=== PATIENT | female | born 1970 | race Caucasian/White ===

== ENCOUNTER 2017-11-19 15:46 | Outpatient (CLI) | payer BC | END 2017-11-19 15:47 | disposition home or self-care (01) | LOC: BICMAMMO 15:46 | PROVIDERS: ATTEND Obstetrics & Gynecology | DX: Z12.31 Encounter for screening mammogram for malignant neoplasm of breast (principal) | CPT/HCPCS: 77063; 77067 ==

== ENCOUNTER 2018-11-29 07:32 | Outpatient (CLI) | payer BC ==
--- NOTE | 2018-11-29 09:03 | ULT ---
LEFT BREAST ULTRASOUND: HISTORY: Left subareolar mass noted on screening mammography. COMPARISON: None. TECHNIQUE: Targeted sonographic imaging of the left retroareolar region was performed. Static images were revie wed. After reviewing the static images, real-time imaging was also performed in the presence of the radiologist. FINDINGS: Static and real-time imaging demonstrate a well-circumscribed anechoic focus measuring 1.4 x 1.1 x 1. 2 cm, compatible with a cyst. IMPRESSION: BIRADS category 2, benign findings. RECOMMENDATION: Annual mammogram. POS: NIC
== END 2018-11-29 07:33 | disposition home or self-care (01) ==
LOC: BICULT 07:32
PROVIDERS: ATTEND Obstetrics & Gynecology
DX: N63.20 Unspecified lump in the left breast, unspecified quadrant (principal)

== ENCOUNTER 2019-12-11 11:57 | Outpatient (CLI) | payer BC ==
--- NOTE | 2019-12-11 14:59 | MMO ---
Bilateral MAMMO Bilat Screen [facility]. CLINICAL HISTORY: Patient is 48 years old and is seen for screening. The patient has no family history of breast cancer. The patient has no personal history of cancer. VIEWS: The views performed were: bilateral craniocaudal with tomosynthesis and bilateral mediolateral oblique with tomosynthesis. FILMS COMPARED: The present examination has been compared to prior imaging studies performed at [facility] on 11/22/2018, and at [facility] on 09/21/2016, 11/19/2017 and 11/29/2018. This study has been interpreted with the assistance of computer-aided detection. MAMMOGRAM FINDINGS: The breasts are heterogeneously dense, which could obscure a lesion on mammography. There are no suspicious masses, suspicious calcifications, or new areas of architectural distortion. IMPRESSION: THERE IS NO MAMMOGRAPHIC EVIDENCE OF MALIGNANCY. A ROUTINE FOLLOW-UP MAMMOGRAM IN 1 YEAR IS RECOMMENDED. THE RESULTS OF THIS EXAM WERE SENT TO THE PATIENT. ACR BI-RADS Category 1 - Negative MAMMOGRAPHY NOTE: 1. A negative mammogram report should not delay a biopsy if a dominant of clinically suspicious mass is present. 2. Approximately 10% to 15% of breast cancers are not detected by mammography. 3. Adenosis and dense breasts may obscure an underlying neoplasm. Reported by: RICHARD MARTINEZ MD Electonically Signed: [id number]
== END 2019-12-11 11:58 | disposition home or self-care (01) ==
LOC: BICMAMMO 11:57
PROVIDERS: ATTEND Obstetrics & Gynecology
DX: Z12.31 Encounter for screening mammogram for malignant neoplasm of breast (principal)
CPT/HCPCS: 77063; 77067

== ENCOUNTER 2021-01-13 10:58 | Outpatient (CLI) | payer BC ==
[2021-01-13 12:04] LABS: Hemoglobin 12.5 g/dL (12.0-15.5); Mean Corpuscular HGB CONC 33.6 g/dL (32.0-36.0); Mean Corpuscular Hemoglobin 31.7 pg (27.0-33.0); Mean Corpuscular Volume 94.4 fl (81.6-98.3); Mean Platelet Volume 11.3 fl (7.4-10.4); Platelet Count 364 10x3/uL (150-450); RBC Distribution Width 13.3 % (11.5-14.5); Red Blood Cell (RBC) Count 3.94 10x6/uL (3.90-5.03); White Blood Cell (WBC) Count 6.7 10x3/uL (3.5-10.5)
[2021-01-13 12:35] LABS: PTT 27.2 sec (22.0-33.0); Prothrombin Time 10.8 sec (9.5-12.1)
[2021-01-13 12:39] LABS: Anion Gap 17 mmol/L (10-20); BUN (Urea Nitrogen) 11 mg/dL (7.0-18.7); Calc. Creatinine Clearance 0 mL/min (70-130); Calcium 10.3 mg/dL (7.8-10.44); Carbon Dioxide 21 mmol/L (22-29); Chloride 107 mmol/L (98-107); Glucose 77 mg/dL (70-105); Potassium 4.8 mmol/L (3.5-5.1); Sodium 140 mmol/L (136-145)
[2021-01-14 01:05] LABS: SARS-CoV-2 PCR by NAA Not Detected (NotDetected)
== END 2021-01-13 10:59 | disposition home or self-care (01) ==
LOC: LABBT 10:58
PROVIDERS: ATTEND Surgery
DX: Z01.818 Encounter for other preprocedural examination (principal); M50.122 Cervical disc disorder at C5-C6 level with radiculopathy; M48.02 Spinal stenosis, cervical region; Z20.822 Contact with and (suspected) exposure to COVID-19
CPT/HCPCS: 80048; 85027; 85610; 85730; 86850; 86900; 86901; 93005; 93010; U0003; U0005

== ENCOUNTER 2021-01-18 06:08 | Observation (INO) | payer BC ==
[2021-01-13 12:04] LABS: Hemoglobin 12.5 g/dL (12.0-15.5); Mean Corpuscular HGB CONC 33.6 g/dL (32.0-36.0); Mean Corpuscular Hemoglobin 31.7 pg (27.0-33.0); Mean Corpuscular Volume 94.4 fl (81.6-98.3); Mean Platelet Volume 11.3 fl (7.4-10.4); Platelet Count 364 10x3/uL (150-450); RBC Distribution Width 13.3 % (11.5-14.5); Red Blood Cell (RBC) Count 3.94 10x6/uL (3.90-5.03); White Blood Cell (WBC) Count 6.7 10x3/uL (3.5-10.5)
[2021-01-13 12:35] LABS: PTT 27.2 sec (22.0-33.0); Prothrombin Time 10.8 sec (9.5-12.1)
[2021-01-13 12:39] LABS: Anion Gap 17 mmol/L (10-20); BUN (Urea Nitrogen) 11 mg/dL (7.0-18.7); Calc. Creatinine Clearance 0 mL/min (70-130); Calcium 10.3 mg/dL (7.8-10.44); Carbon Dioxide 21 mmol/L (22-29); Chloride 107 mmol/L (98-107); Glucose 77 mg/dL (70-105); Potassium 4.8 mmol/L (3.5-5.1); Sodium 140 mmol/L (136-145)
[2021-01-14 01:05] LABS: SARS-CoV-2 PCR by NAA Not Detected (NotDetected)
[2021-01-18] MEDS ORDERED: ceFAZolin 2 GM/DEX 5% 100 ML BAG ONE (06:22)
[2021-01-18] MEDS ORDERED: Thrombin 5000 UNITS/5 ML VIAL ONE (06:47)
[2021-01-18] MEDS ORDERED: Midazolam HCl 2 mg/2 ml Vial ONE (06:59)
[2021-01-18] MEDS ORDERED: Fentanyl 100 MCG/2 ML VIAL ONE (07:04)
[2021-01-18] MEDS ORDERED: Ketorolac Tromethamine 30 MG/ML VIAL ONE (07:32)
[2021-01-18] MEDS ORDERED: Glycopyrrolate 0.2 MG/ML 5 ML SYRINGE ONE (07:32)
[2021-01-18] MEDS ORDERED: ePHEDrine 50 MG/ML VIAL ONE (07:32)
[2021-01-18] MEDS ORDERED: Lidocaine 1% PF 5 ML VIAL ONE (07:32)
[2021-01-18] MEDS ORDERED: Dexamethasone 20 MG/5 ML VIAL ONE (07:32)
[2021-01-18] MEDS ORDERED: PROPOFOL 200 MG/20 ML VIAL ONE (07:32)
[2021-01-18] MEDS ORDERED: PHENYLEPHRINE-NS 100 MCG/ML 10 ML SYRINGE ONE (07:32)
[2021-01-18] MEDS ORDERED: Ondansetron PF 4 MG/2 ML Vial ONE (07:32)
[2021-01-18] MEDS ORDERED: Rocuronium Bromide 10 MG/ML (10ML VIAL) ONE (07:32)
[2021-01-18] MEDS ORDERED: HYDROmorphone 2 MG/ML VIAL ONE (07:59)
[2021-01-18] MEDS ORDERED: traMADol HCl 50 MG TAB PO PRN (10:03)
[2021-01-18] MEDS ORDERED: Acetaminophen 325 MG TAB PO PRN (10:03)
[2021-01-18] MEDS ORDERED: Acetaminophen/Codeine 30-300mg Tablet PO PRN (10:04)
[2021-01-18] MEDS ORDERED: Promethazine 25 MG TAB PO PRN (10:06)
[2021-01-18] MEDS ORDERED: HYDROmorphone 0.5 MG/0.5 ML SYRINGE ONE ×3 (10:29→12:25)
[2021-01-18] MEDS ORDERED: HYDROmorphone 2 MG/ML VIAL SLOW IVP PRN ×2 (10:33→11:41)
[2021-01-18] MEDS ORDERED: Promethazine HCl 25 MG/ML VIAL IM PRN ×2 (10:33→11:41)
[2021-01-18] MEDS ORDERED: Ondansetron HCl/PF 4 MG/2 ML Vial IVP PRN ×2 (10:33→11:40)
[2021-01-18] MEDS ORDERED: Ketorolac Tromethamine 30 MG/ML VIAL IVP PRN (10:33)
[2021-01-18] MEDS ORDERED: Promethazine HCl 25 MG/ML VIAL IVPB PRN ×2 (10:33→11:40)
[2021-01-18] MEDS ORDERED: Meperidine HCl/PF 25 MG/ML VIAL SLOW IVP PRN (11:42)
[2021-01-18] MEDS: ceFAZolin Sodium/D5W 2 GM in Premix Bag 1 BAG IVPB SCH ×2 (16:08→23:41)
[2021-01-18] MEDS: HYDROcodone/Acetaminophen 7.5/325 mg Tablet PO PRN (17:11)
[2021-01-18] MEDS: Gabapentin 300 MG CAP PO SCH ×2 (17:12→21:04)
[2021-01-18] MEDS: Sodium Chloride 0.9% 1,000 ML IV SCH (18:21)
[2021-01-18 18:23] VITALS: BMI 27.9
[2021-01-18] MEDS: tiZANidine HCl 4 MG TAB PO PRN (18:37)
[2021-01-18] MEDS: Ketorolac Tromethamine 0.5% Ophth Soln 3 ml Bottle FS SCH ×2 (20:51→23:42)
[2021-01-18] MEDS ORDERED: Melatonin 3 MG TAB PO SCH (21:00)
[2021-01-18] MEDS ORDERED: Gabapentin 300 MG CAP PO SCH (21:00)
[2021-01-18] MEDS: Liothyronine Sodium 5 MCG TAB PO SCH (21:03)
[2021-01-19] MEDS: HYDROcodone/Acetaminophen 7.5/325 mg Tablet PO PRN ×2 (00:05→09:46)
[2021-01-19] MEDS: Sodium Chloride 0.9% 1,000 ML IV SCH (00:14)
[2021-01-19] MEDS: tiZANidine HCl 4 MG TAB PO PRN ×2 (05:52→13:43)
[2021-01-19] MEDS: Ketorolac Tromethamine 0.5% Ophth Soln 3 ml Bottle FS SCH (05:53)
[2021-01-19] MEDS ORDERED: Levothyroxine Sodium 25 MCG TAB PO SCH (06:00)
[2021-01-19] MEDS ORDERED: Levothyroxine Sodium 112 MCG TAB PO SCH (06:00)
[2021-01-19] MEDS: Liothyronine Sodium 5 MCG TAB PO SCH (08:50)
[2021-01-19] MEDS ORDERED: Stress 600 With Zinc 1 TAB PO SCH (09:00)
[2021-01-19] MEDS ORDERED: Ascorbic Acid 500 mg Chewable Tablet PO SCH (09:00)
[2021-01-19] MEDS ORDERED: BIOTIN 5 MG PO SCH (09:00)
[2021-01-19] MEDS ORDERED: Polyethylene Glycol 3350 17 GM Packet PO SCH (09:00)
[2021-01-19] MEDS ORDERED: FLU VACC QS2021-22(6MOS UP)/PF 60 MCG/0.5 ML SYRINGE IM ONE (09:00)
[2021-01-19] MEDS ORDERED: Saccharomyces boulardii 250 MG CAP PO SCH (09:00)
[2021-01-19] MEDS ORDERED: PHENTERMINE HCL 15 MG PO SCH (09:00)
[2021-01-19] MEDS: ceFAZolin Sodium/D5W 2 GM in Premix Bag 1 BAG IVPB SCH (09:40)
[2021-01-19] MEDS: Gabapentin 300 MG CAP PO SCH (09:46)
[2021-01-19 11:38] VITALS: BP 106/69; TEMP 97.6
== END 2021-01-19 13:50 | disposition home or self-care (01) ==
LOC: SDC 06:08 → SURG B 10:02
PROVIDERS: ADMIT Surgery; ATTEND Surgery
PROC: 0RG20A0 Fusion of 2 or more Cervical Vertebral Joints with Interbody Fusion Device, Anterior Approach, Anterior Column, Open Approach (ICD-10-PCS; principal; 2021-01-18)
DX: M48.02 Spinal stenosis, cervical region (principal); M50.122 Cervical disc disorder at C5-C6 level with radiculopathy; M48.061 Spinal stenosis, lumbar region without neurogenic claudication; Z79.1 Long term (current) use of non-steroidal anti-inflammatories (NSAID); Z79.899 Other long term (current) drug therapy
CPT/HCPCS: 76000; 80048; 85027; 85610; 85730; 86850; 86900; 86901; 96365; 96376; C1713; C1776; G0378; J1100; J1170; J1885; J2250; J2405; J2704; J3010; J3490; U0003; U0005

== ENCOUNTER 2021-03-04 09:59 | Outpatient (CLI) | payer BC | END 2021-03-04 10:00 | disposition home or self-care (01) | LOC: BICRAD 09:59 | PROVIDERS: ATTEND Family Medicine | DX: M47.22 Other spondylosis with radiculopathy, cervical region (principal); Z98.1 Arthrodesis status; Z98.890 Other specified postprocedural states | CPT/HCPCS: 72040 ==

== ENCOUNTER 2021-03-20 16:59 | Emergency (ER) | payer BC ==
[~2021-03-20 16:59] MED LIST: Iopamidol-370 76% 500 ML 1 ML ONE
[2021-03-20 17:42] LABS: #Basophils 0.1 thou/uL (0.0-0.2); #Eosinphils 0.1 thou/uL (0.0-0.7); #Lymphocytes 2.3 thou/uL (1.20-3.40); #Monocytes 0.8 thou/uL (0.11-0.59); %Basophils 0.8 % (0.0-1.0); %Eosinophils 1.6 % (0.0-10.0); %Lymphocytes 32.1 % (21.0-51.0); %Monocytes 10.4 % (0.0-10.0); Hemoglobin 12.7 g/dL (12.0-16.0); Mean Corpuscular HGB CONC 32.1 g/dL (32.0-36.0); Mean Corpuscular Hemoglobin 32.5 pg (27.0-31.0); Mean Platelet Volume 8.4 fL (7.4-10.4); Platelet Count 511 thou/uL (130-400); RBC Distribution Width 12.2 % (11.5-14.5); Red Blood Cell (RBC) Count 3.93 mill/uL (4.20-5.40); White Blood Cell (WBC) Count 7.2 thou/uL (4.8-10.8)
[2021-03-20 18:05] LABS: ALT (SGPT) 21 U/L (8-55); AST (SGOT) 17 U/L (5-34); Albumin 4.4 g/dL (3.5-5.0); Alkaline Phosphatase 72 U/L (40-110); Anion Gap 17 mmol/L (10-20); BUN (Urea Nitrogen) 13 mg/dL (7.0-18.7); Bilirubin, Total 0.7 mg/dL (0.2-1.2); Calc. Creatinine Clearance 0 mL/min (70-130); Calcium 10.2 mg/dL (7.8-10.44); Carbon Dioxide 22 mmol/L (22-29); Chloride 102 mmol/L (98-107); Globulin 4.3 g/dL (2.4-3.5); Glucose 103 mg/dL (70-105); Potassium 4.5 mmol/L (3.5-5.1); Protein, Total 8.7 g/dL (6.0-8.3); Sodium 136 mmol/L (136-145)
[2021-03-20 19:04] LABS: Bilirubin Negative (Negative); Blood, Urine Negative (Negative); Clarity Clear (Clear); Glucose, Urine (Dipstick) Normal (Negative); Ketone, Urine Negative (Negative); Leukocyte Negative Leu/uL (Negative); Nitrite Negative (Negative); Protein, Urine (Dipstick) Negative (Neg-Trace); Specific Gravity, Urine 1.014 (1.002-1.036); Urobilinogen Normal mg/dL (Less than 2); pH, Urine 6.5 (5.0-9.0)
[2021-03-20] MEDS ORDERED: Morphine 4 MG/ML VIAL ONE (19:27)
[2021-03-20] MEDS ORDERED: cefTRIAXone\\ROCEPHIN 2 GM VIAL ONE (19:27)
[2021-03-20 20:00] LABS: BHCG - Serum Negative (NEGATIVE); Pregs Control Background? CLEAR/WHITE (CLR/WHITE); Pregs Control Bar Appear? YES (CONTROL BAR)
[2021-03-20] MEDS ORDERED: Vancomycin 1 GM/200 ML BAG ONE (21:20)
== END 2021-03-20 22:29 | disposition home or self-care (01) ==
LOC: ERS 16:59
DX: K22.3 Perforation of esophagus (principal); Z79.899 Other long term (current) drug therapy
CPT/HCPCS: 36415; 70491; 71045; 71260; 74018; 80053; 81003; 83605; 83735; 84703; 85025; 87040; 96365; 96367; 96375; J0696; J2270; J3370; Q9967

== ENCOUNTER 2021-03-31 12:08 | Outpatient (CLI) | payer BC | END 2021-03-31 12:09 | disposition home or self-care (01) | LOC: BICRAD 12:08 | PROVIDERS: ATTEND Neurological Surgery | DX: M48.02 Spinal stenosis, cervical region (principal); Z98.1 Arthrodesis status | CPT/HCPCS: 72050 ==

== ENCOUNTER 2021-08-15 15:28 | Outpatient (CLI) | payer BC ==
[2021-08-16 00:52] LABS: SARS-CoV-2 PCR by NAA Not Detected (NotDetected)
== END 2021-08-15 15:29 | disposition home or self-care (01) ==
LOC: LABBT 15:28
PROVIDERS: ATTEND Specialist
DX: Z01.812 Encounter for preprocedural laboratory examination (principal); J38.00 Paralysis of vocal cords and larynx, unspecified; R49.0 Dysphonia; Z20.822 Contact with and (suspected) exposure to COVID-19
CPT/HCPCS: 85014; U0003; U0005

== ENCOUNTER 2021-08-18 07:06 | Day surgery (SDC) | payer BC ==
[2021-08-16 11:01] VITALS: BMI 27.8
[~2021-08-18 07:06] MED LIST changes: -Iopamidol-370 76% 500 ML 1 ML ONE; +Propofol 1,000 MG/100 ML VIAL IV ONE; +fentaNYL Citrate/PF 100 MCG/2 ML SYRINGE ONE
[2021-08-18] MEDS ORDERED: EPINEPHrine 1 MG/ML AMP ONE (08:56)
[2021-08-18] MEDS ORDERED: Midazolam HCl 2 mg/2 ml Vial ONE (09:19)
[2021-08-18] MEDS ORDERED: Ondansetron PF 4 MG/2 ML Vial ONE (09:23)
[2021-08-18] MEDS ORDERED: Dexamethasone 20 MG/5 ML VIAL ONE (09:23)
[2021-08-18] MEDS ORDERED: PROPOFOL 200 MG/20 ML VIAL ONE (09:23)
[2021-08-18] MEDS ORDERED: Rocuronium Bromide 10 MG/ML (10ML VIAL) ONE (09:23)
[2021-08-18] MEDS ORDERED: Fentanyl 100 MCG/2 ML VIAL ONE (10:21)
== END 2021-08-18 11:45 | disposition home or self-care (01) ==
LOC: SDC 07:06
PROVIDERS: ATTEND Specialist
PROC: 3E0F8GC Introduction of Other Therapeutic Substance into Respiratory Tract, Via Natural or Artificial Opening Endoscopic (ICD-10-PCS; principal; 2021-08-18)
DX: J38.01 Paralysis of vocal cords and larynx, unilateral (principal); E03.9 Hypothyroidism, unspecified; Z79.82 Long term (current) use of aspirin; Z79.890 Hormone replacement therapy; Z79.899 Other long term (current) drug therapy
CPT/HCPCS: C1776; J0171; J1100; J2250; J2405; J2704; J3010

== ENCOUNTER 2021-10-24 08:13 | Outpatient (CLI) | payer BC | END 2021-10-24 08:14 | disposition home or self-care (01) | LOC: LABBT 08:13 | PROVIDERS: ATTEND Specialist | DX: Z01.812 Encounter for preprocedural laboratory examination (principal); J38.00 Paralysis of vocal cords and larynx, unspecified; R49.0 Dysphonia; Z20.822 Contact with and (suspected) exposure to COVID-19 | CPT/HCPCS: 85014; 87811 ==

== ENCOUNTER 2021-10-27 09:00 | Day surgery (SDC) | payer BC ==
[2021-10-25 10:16] VITALS: BMI 26.2
[2021-10-27] MEDS ORDERED: EPINEPHrine 1 MG/ML AMP ONE (09:32)
[2021-10-27] MEDS ORDERED: Ondansetron PF 4 MG/2 ML Vial ONE ×2 (09:42→10:12)
[2021-10-27] MEDS ORDERED: PROPOFOL 60 ML ONE (09:42)
[2021-10-27] MEDS ORDERED: fentaNYL Citrate/PF 100 MCG/2 ML SYRINGE ONE ×2 (09:42→10:47)
[2021-10-27] MEDS ORDERED: Famotidine/PF 20 mg/2ml Vial ONE (09:42)
[2021-10-27] MEDS ORDERED: Rocuronium Bromide 10 MG/ML (10ML VIAL) ONE (10:12)
[2021-10-27] MEDS ORDERED: Lidocaine 1% PF 5 ML VIAL ONE (10:12)
[2021-10-27] MEDS ORDERED: PROPOFOL 200 MG/20 ML VIAL ONE (10:12)
[2021-10-27] MEDS ORDERED: Dexamethasone 20 MG/5 ML VIAL ONE (10:12)
[2021-10-27] MEDS ORDERED: Metoclopramide HCl 10 MG/2 ML VIAL ONE (10:12)
[2021-10-27] MEDS ORDERED: Succinylcholine 200 MG/10 ml SYRINGE FS ONE (10:12)
== END 2021-10-27 13:00 | disposition home or self-care (01) ==
LOC: SDC 09:00
PROVIDERS: ATTEND Specialist
PROC: 3E0F8GC Introduction of Other Therapeutic Substance into Respiratory Tract, Via Natural or Artificial Opening Endoscopic (ICD-10-PCS; principal; 2021-10-27)
DX: J38.01 Paralysis of vocal cords and larynx, unilateral (principal); E03.9 Hypothyroidism, unspecified; Z79.1 Long term (current) use of non-steroidal anti-inflammatories (NSAID); Z79.890 Hormone replacement therapy; Z79.899 Other long term (current) drug therapy
CPT/HCPCS: C1776; J0171; J1100; J2405; J2704; J2765; S0028

== ENCOUNTER 2021-11-02 12:44 | Emergency (ER) | payer BC ==
[2021-11-02 14:08] LABS: #Eosinphils 0.1 thou/uL (0.0-0.7); #Lymphocytes 2.9 thou/uL (1.20-3.40); #Monocytes 0.5 thou/uL (0.11-0.59); #Neutrophils 3.6 thou/uL (1.40-6.50); %Basophils 0.5 % (0.0-1.0); %Eosinophils 1.9 % (0.0-10.0); %Lymphocytes 40.2 % (21.0-51.0); %Monocytes 7.2 % (0.0-10.0); %Neutrophils 50.3 % (42.0-75.0); Mean Corpuscular HGB CONC 32.5 g/dL (32.0-36.0); Mean Corpuscular Hemoglobin 33.2 pg (27.0-31.0); Mean Platelet Volume 8.4 fL (7.4-10.4); Platelet Count 383 thou/uL (130-400); Red Blood Cell (RBC) Count 4.22 mill/uL (4.20-5.40); White Blood Cell (WBC) Count 7.3 thou/uL (4.8-10.8)
[2021-11-02] MEDS ORDERED: Iopamidol-370 76% 500 ML 1 ML ONE (14:14)
[2021-11-02 14:32] LABS: ALT (SGPT) 23 U/L (8-55); AST (SGOT) 21 U/L (5-34); Albumin 4.6 g/dL (3.5-5.0); Alkaline Phosphatase 54 U/L (40-110); Anion Gap 14 mmol/L (10-20); BUN (Urea Nitrogen) 17 mg/dL (7.0-18.7); Bilirubin, Total 0.5 mg/dL (0.2-1.2); Calc. Creatinine Clearance 0 mL/min (70-130); Calcium 10.2 mg/dL (7.8-10.44); Carbon Dioxide 28 mmol/L (22-29); Chloride 104 mmol/L (98-107); Estimated GFR 105; Globulin 3.2 g/dL (2.4-3.5); Glucose 89 mg/dL (70-105); Potassium 4.8 mmol/L (3.5-5.1); Protein, Total 7.8 g/dL (6.0-8.3); Sodium 141 mmol/L (136-145)
[2021-11-02 16:28] LABS: Magnesium 2.1 mg/dL (1.6-2.6)
[2021-11-02 17:51] LABS: Bilirubin Negative (Negative); Blood, Urine Negative (Negative); Clarity Clear (Clear); Glucose, Urine (Dipstick) Normal (Negative); Ketone, Urine 20 mg/dL (Negative); Leukocyte Negative Leu/uL (Negative); Nitrite Negative (Negative); Protein, Urine (Dipstick) 10 mg/dL (Neg-Trace); Urobilinogen Normal mg/dL (Less than 2); pH, Urine 7.5 (5.0-9.0)
[2021-11-02 17:52] LABS: Specific Gravity, Urine Greater than 1.060 (1.002-1.036)
[2021-11-02 18:52] LABS: SARS-CoV-2 NAA Rapid Test Not Detected (NotDetected)
== END 2021-11-02 18:13 | disposition home or self-care (01) ==
LOC: ERS 12:44
DX: M54.2 Cervicalgia (principal); R55 Syncope and collapse; R29.700 NIHSS score 0; E03.9 Hypothyroidism, unspecified; Z20.822 Contact with and (suspected) exposure to COVID-19; Z79.899 Other long term (current) drug therapy
CPT/HCPCS: 36415; 70498; 80053; 81003; 83735; 84484; 85025; 93005; Q9967; U0002

== ENCOUNTER 2022-10-13 12:46 | Outpatient (CLI) | payer BC | END 2022-10-13 12:47 | disposition home or self-care (01) | LOC: BICMAMMO 12:46 | PROVIDERS: ATTEND Family Medicine | DX: Z12.31 Encounter for screening mammogram for malignant neoplasm of breast (principal); N64.89 Other specified disorders of breast | CPT/HCPCS: 77063; 77067 ==

== ENCOUNTER 2023-09-25 13:31 | Outpatient (CLI) | payer BC | END 2023-09-25 13:32 | disposition home or self-care (01) | LOC: BICMAMMO 13:31 | PROVIDERS: ATTEND Family Medicine | DX: N63.20 Unspecified lump in the left breast, unspecified quadrant (principal) | CPT/HCPCS: 77066; G0279 ==

== ENCOUNTER 2024-04-01 06:00 | Day surgery (SDC) | payer BC ==
[2024-03-31 10:10] VITALS: BMI 24.3
[2024-04-01] MEDS ORDERED: Lidocaine 1% MPF 2 ML VIAL ONE (06:10)
[2024-04-01] MEDS ORDERED: Midazolam HCl 2 mg/2 ml Vial ONE (07:35)
[2024-04-01] MEDS ORDERED: PROPOFOL 20 ML ONE ×2 (07:35→07:58)
[2024-04-01] MEDS ORDERED: Lidocaine 1% PF 5 ML VIAL ONE (07:38)
== END 2024-04-01 09:06 | disposition home or self-care (01) ==
LOC: SDC 06:00
PROVIDERS: ATTEND Internal Medicine Gastroenterology
PROC: 0DJD8ZZ Inspection of Lower Intestinal Tract, Via Natural or Artificial Opening Endoscopic (ICD-10-PCS; principal; 2024-04-01)
DX: Z12.11 Encounter for screening for malignant neoplasm of colon (principal); K58.1 Irritable bowel syndrome with constipation; K57.30 Diverticulosis of large intestine without perforation or abscess without bleeding; I10 Essential (primary) hypertension; E11.42 Type 2 diabetes mellitus with diabetic polyneuropathy; E78.00 Pure hypercholesterolemia, unspecified; E03.9 Hypothyroidism, unspecified; G43.909 Migraine, unspecified, not intractable, without status migrainosus; Z98.51 Tubal ligation status; Z90.710 Acquired absence of both cervix and uterus; Z90.89 Acquired absence of other organs; Z90.81 Acquired absence of spleen; Z79.890 Hormone replacement therapy; Z79.899 Other long term (current) drug therapy
CPT/HCPCS: J2250; J2704